=== PATIENT | male | born 1965 | race Caucasian/White ===

== ENCOUNTER 2018-05-18 05:27 | Day surgery (SDC) | payer OTHER ==
[~2018-05-18] VITALS: Ht 180.3 cm; Wt 114.8 kg
--- NOTE | ~2018-05-18 | OP ---
PATIENT NAME: IRMA HANKS MEDICAL RECORD: [id number] :61 LOCATION:[facility] ADMISSION DATE: SURGEON: YARED SMART MD DATE OF OPERATION: 05/18/2018 PREOPERATIVE DIAGNOSES: 1. Hematochezia. 2. Intractable symptomatic external hemorrhoids. 3. Third-degree anal prolapse. POSTOPERATIVE DIAGNOSES: 1. Hematochezia. 2. Intractable symptomatic external hemorrhoids. 3. Third-degree anal prolapse. PROCEDURE: Procedure for prolapse and hemorrhoids. SURGEON: Yraed Smart MD CUSHION GUM APPLICATOR: None. BLOOD LOSS: Minimal. ANESTHESIA: General. COMPLICATIONS: None. The patient has intractably symptomatic hemorrhoids. I saw the patient in the holding area. We discussed the risks, possible complications, and alternatives to the procedure. He elects to proceed. The discussion specifically included, but was not limited to, bleeding requiring emergency reoperation, infection, probability that he will have bleeding with each bowel movement for the next 3 weeks. The possibility of sphincteric incompetence or anal stenosis. He elects to proceed. OPERATIVE COURSE: The patient was conveyed to the operating room electively on 05/18/2018. General anesthesia was induced by the anesthesia staff. The patient was placed in the lithotomy position. The buttocks were taped laterally. The anus and perianal areas were sterilely prepped and draped. The anus was dilated laterally to 3 fingers. A PPH retractor was placed. The retractor was sutured to the surrounding anoderm with 2-0 silk sutures. A 2-0 Prolene mucosal pursestring suture was applied 1 cm cephalad to the clear retractor. The PPH stapling device was advanced with the anvil cephalad to the pursestring suture, which was then tightened and tied. The stapling device was engaged. It was held in place for 2 minutes. It was then fired. It was removed under direct vision. There was an entire donut of hemorrhoidal and lower rectal mucosal tissue within the stapling device. Bleeding along the anastomotic staple line was controlled with [id number] 3-0 Vicryls. A combination of Marcaine and a steroid preparation was used to infiltrate the perianal tissues. Gelfoam was applied within anus and lower rectum. A topical anesthetic cream was applied to the external hemorrhoids. The patient was then extubated and conveyed to postanesthesia care unit. There is no need for the patient to see me unless he develops a complication OPERATIVE REPORT [id number] HANKSIRMA Annette related to this operative procedure. He is going to be [facility] to the [facility] with Colace as well as Valium, which is a good anal muscle relaxant and helps prevent anal spasms as well as a narcotic analgesic. TRANSINT:[id number] Voice Confirmation ID: [id number] DOCUMENT ID: [id number] YARED SMART MD at 1717 CC: CHRISTINE RAINES MD, TREY PICKETT MD, AGUILA OLMOS and [id number] DICTATION DATE: 05/18/18 0957 VERIFYING MACHINE OPERATOR: 05/18/18 1147 [facility] 05/18/18 [facility] [address] [place] [address]
[2018-05-18] MEDS ORDERED: ZYLOPRIM100 MG (06:32)
[2018-05-18] MEDS ORDERED: ARTIFICIAL TEAR15 ML (06:33)
[2018-05-18] MEDS ORDERED: NORVASC10 MG (06:33)
[2018-05-18] MEDS ORDERED: CALCI-CHEW1 TAB.CHEW (06:34)
[2018-05-18] MEDS ORDERED: ZYRTEC10 MG (06:34)
[2018-05-18] MEDS ORDERED: XALATAN 0.0052.5 ML (06:35)
[2018-05-18] MEDS ORDERED: ZESTRIL40 MG (06:35)
[2018-05-18] MEDS ORDERED: CHLORTHALIDONE25 MG (06:35)
[2018-05-18] MEDS ORDERED: FLOMAX0.4 MG (06:36)
[2018-05-18] MEDS ORDERED: PAMELOR10 MG (06:36)
[2018-05-18] MEDS ORDERED: OMEPRAZOLE40 MG (06:36)
[2018-05-18] MEDS ORDERED: IMODIUM2 MG (06:36)
[2018-05-18 06:57] VITALS: BP 148/94; Ht 180.3 cm; Wt 114.8 kg
[2018-05-18 07:22] LABS: HEMOGLOBIN 12.6 g/dL (13.5-17.5); MCH 32.6 pg (26.0-34.0); MEAN PLATELET VOLUME 10.6 fL (7.4-10.4); RBC 3.87 10x6/uL (4.20-6.10); RDW 12.9 % (11.5-14.5); WBC 6.1 10x3/uL (4.8-10.8)
== END 2018-05-18 14:30 | disposition home or self-care (01) ==
LOC: D.OPS 05:27
PROVIDERS: Anesthesiology
DX: K64.2 Third degree hemorrhoids (principal); K64.4 Residual hemorrhoidal skin tags; Z01.812 Encounter for preprocedural laboratory examination

== ENCOUNTER 2018-07-16 05:01 | Day surgery (SDC) | payer OTHER ==
[~2018-07-16] VITALS: Ht 180.3 cm; Wt 110.5 kg
--- NOTE | ~2018-07-16 | OP ---
PATIENT NAME: IRMA HANKS MEDICAL RECORD: [id number] :61 LOCATION:D[facility] ADMISSION DATE: SURGEON: YARED SMART MD DATE OF OPERATION: 07/16/2018 PREOPERATIVE DIAGNOSIS: Thrombosed external hemorrhoid. POSTOPERATIVE DIAGNOSES: Thrombosed external hemorrhoid with enlargement of some internal hemorrhoidal bundles. PROCEDURE: External hemorrhoidectomy. SURGEON: Yared Smart MD OCCUPATIONAL THERAPIST HOME BASED: None. BLOOD LOSS: Minimal. ANESTHESIA: General. COMPLICATIONS: None. The risks, possible complications, and alternatives to the procedure were explained to the patient. He elects to proceed. OPERATIVE COURSE: The patient was conveyed to the operating room electively on 07/16/2018. General anesthesia was induced by the anesthesia staff. The patient was placed in the lithotomy position. The buttocks were taped laterally. The anus and perianal areas were sterilely prepped and draped. U-shaped anal retractors were placed. I noted no evidence of an anal fissure. No anal fistula. The external hemorrhoid that was thrombosed was easily identified. I grasped it and I used the Harmonic scalpel to excise it. There was no damage to the underlying sphincteric mechanisms. There was some enlargement of some internal hemorrhoidal bundles and I thought the patient would likely be at risk for rectal bleeding or pooling of blood within the internal and external hemorrhoids with subsequent development of a new thrombus. For this reason, I ligated several bundles of the internal hemorrhoids with 3-0 Vicryls. Gelfoam was applied within the anus and lower rectum. A combination of sterile preparation and Marcaine were used to infiltrate the perianal tissues. A topical anesthetic ointment was applied to the anus. The patient was then extubated and conveyed to the post-anesthesia care unit where he was in stable condition. He will be dismissed back to the [facility]. I will see him on a p.r.n. basis. If there is a complication related to this operative procedure, I can see him in my office or when I am on rounds out at [facility]. TRANSINT:[id number] Voice Confirmation ID: [id number] DOCUMENT ID: [id number] OPERATIVE REPORT [id number] IRMA HANKS YARED SMART MD at 1321 CC: TREY PICKETT MD, CHRISTINE RAINES MD and THOM TORRES [id number] DICTATION DATE: 07/22/18 1119 ELECTRONICS SPECIALIST: 07/22/18 1128 [facility] 07/16/18 [place] [id number] [place] [address]
[~2018-07-16 05:01] MED LIST: ARTIFICIAL TEAR15 ML; CALCI-CHEW1 TAB.CHEW; CHLORTHALIDONE25 MG; FLOMAX0.4 MG; IMODIUM2 MG; NORVASC10 MG; OMEPRAZOLE40 MG; PAMELOR10 MG; XALATAN 0.0052.5 ML; ZESTRIL40 MG; ZYLOPRIM100 MG; ZYRTEC10 MG
[2018-07-16 06:21] VITALS: BP 128/88; Ht 180.3 cm; Wt 110.5 kg
[2018-07-16 07:11] LABS: HEMATOCRIT 33.3 % (42.0-54.0); HEMOGLOBIN 11.7 g/dL (13.5-17.5); MCH 32.5 pg (26.0-34.0); MCHC 35.1 g/dL (31.0-37.0); MCV 92.5 fL (80.0-100.0); MEAN PLATELET VOLUME 10.1 fL (7.4-10.4); PLATELET COUNT 142 10x3/uL (130-400); RDW 13.4 % (11.5-14.5); WBC 5.4 10x3/uL (4.8-10.8)
[2018-07-16 07:24] LABS: CALCIUM 7.8 mg/dL (8.5-10.1); CARBON DIOXIDE 26.8 mmol/L (21.0-32.0); CREATININE - SERUM 1.2 mg/dL (0.6-1.3); POTASSIUM - SERUM 3.8 mmol/L (3.5-5.1)
[2018-07-16 07:37] LABS: APTT 28.9 SECONDS (22.8-39.4); INR 1.1 (0.85-1.17); PROTIME 13.8 SECONDS (11.6-15.0)
[2018-07-16 07:58] LABS: EOSINOPHILS 4 % (0-7); LYMPHOCYTES 36 % (15-50); MONOCYTES 5 % (2-11); NEUTROPHILS 55 % (40-80)
[2018-07-16 07:59] LABS: PLATELET ESTIMATE NORMAL; SMUDGE CELLS 1+
== END 2018-07-16 11:15 | disposition home or self-care (01) ==
LOC: D.OPS 05:01
PROVIDERS: Anesthesiology
DX: K64.8 Other hemorrhoids (principal); Z01.812 Encounter for preprocedural laboratory examination

== ENCOUNTER 2018-11-12 05:02 | Day surgery (SDC) | payer OTHER ==
[~2018-11-12] VITALS: Ht 180.3 cm; Wt 110.7 kg
[2018-11-12 05:41] LABS: BASOPHILS 0.2 % (0-2); EOSINOPHILS 3.8 % (0-7); HEMOGLOBIN 13.6 g/dL (13.5-17.5); IMMATURE GRANULOCYTES 0.5 % (0-5); MCH 32.8 pg (26.0-34.0); MCHC 35.8 g/dL (31.0-37.0); MCV 91.6 fL (80.0-100.0); MEAN PLATELET VOLUME 10.8 fL (7.4-10.4); MONOCYTES 8.1 % (2-11); NEUTROPHILS 52.4 % (40-80); RBC 4.15 10x6/uL (4.20-6.10); RDW 12.7 % (11.5-14.5); WBC 8.4 10x3/uL (4.8-10.8)
[2018-11-12 05:42] LABS: PLATELET COUNT 214 10x3/uL (130-400)
[2018-11-12 05:54] LABS: ANION GAP 14.1 mmol/L (8-16); CALCIUM 8.1 mg/dL (8.5-10.1); CARBON DIOXIDE 24.9 mmol/L (21.0-32.0); CREATININE - SERUM 1.5 mg/dL (0.6-1.3)
[2018-11-12 06:02] LABS: APTT 30.1 SECONDS (22.8-39.4); INR 1.14 (0.85-1.17); PROTIME 14.1 SECONDS (11.6-15.0)
[2018-11-12] MEDS ORDERED: FUROSEMIDE10 MG/M1 IV (06:30)
[2018-11-12 06:31] VITALS: BP 104/56; Ht 180.3 cm; Wt 110.7 kg
[2018-11-12] MEDS ORDERED: POTASSIUM20 MEQ/11 PO (06:31)
--- NOTE | 2018-11-12 14:18 | NUR ---
1300 PATIENT STILL HAS NOT URINATED AND IS WAITING FOR RADIOLOGY TO TAKE TO DO BARIUM ENEMA.
--- NOTE | 2018-11-12 15:05 | NUR ---
RECEIVED FROM XRAY POST BARIUM ENEMA. [facility] OFFICERS AT BEDSIDE. AMBULATED TO BATHROOM AND VOIDED. SERGIO SALES SERVED TO PT.
--- NOTE | 2018-11-12 15:40 | NUR ---
PT C/O NAUSEA AND IS ASKING FOR SOMETHING HOWEVER THEN ASK IF HE CAN HAVE ANOTHER SODA. ZOFRAN 4MG IV ADMINISTERED PER ORDERS. IV DC'D WITH CATHETER INTACT.
--- NOTE | 2018-11-12 16:05 | NUR ---
WRITTEN AND VERBAL DC INST. GIVEN TO [facility] OFFICER. X RAY DISC FOR BARIUM ENEMA SENT TO FACILITY WITH OFFICERS. POST OP NOTE AND H & P WILL BE FAXED BY DOT TO FACILITY AFTER DOCTOR HAS DICTATED. RX SENT WITH [facility] OFFICERS. DC'D TO CORRECTIONAL FACILITY WITH [facility] OFFICERS VIA FACILITY VEHICLE. TAKEN TO VEHICLE VIA WC. STABLE AT TIME OF DC.
--- NOTE | 2018-11-15 14:42 | OP ---
PATIENT NAME: IRMA HANKS MEDICAL RECORD: [id number] :61 LOCATION:D.[facility] ADMISSION DATE: SURGEON: YARED SMART MD DATE OF OPERATION: 11/12/2018 PREOPERATIVE DIAGNOSES: 1. Symptomatic gallstones. 2. History of an inadequate colonoscopy prep. 3. Hepatitis C. 4. Fecal occult blood positivity. POSTOPERATIVE DIAGNOSES: 1. Symptomatic gallstones. 2. History of an inadequate colonoscopy prep. 3. Hepatitis C. 4. Advanced cirrhosis noted laparoscopically. 5. Repeat inadequate prep; however, no obstructing colonic masses. 6. Left-sided colonic diverticulosis. 7. Fecal occult blood positivity. PROCEDURES: 1. Laparoscopic cholecystectomy. 2. Intraoperative cholangiography without immediate surgeon interpretation. 3. A 14-gauge core needle liver biopsies. 4. Total colonoscopy to cecum. SURGEON: Yared Smart MD INSTRUMENT PERSON: Sandy Mohan APN BLOOD LOSS: Minimal. COMPLICATIONS: None. The risks, possible complications and alternatives to the procedure were explained to the patient. He elects to proceed. The discussion specifically included, but was not limited to, bleeding requiring emergency reoperation, infection, intestinal injury, bile duct injury, and endoscopic perforation. The patient has had several colonoscopies with inadequate preps. This time, he underwent a 2-day prep. As the patient was to undergo a laparoscopic cholecystectomy, we felt that it would be of his benefit to undergo a colonoscopy at the same time, so that he would only have to have 1 trip to a health care facility, during which both of these procedures could be performed. Also, both procedures could be performed under 1 anesthetic. The indication for the liver biopsy was right upper quadrant pain as well as hepatitis C. The patient has been having nausea as well as right upper quadrant pain, which radiates around to the right back indicative of the symptomatic gallstones, which have been demonstrated radiographically. OPERATIVE COURSE: The patient was conveyed to the operating room electively on 11/12/2018. General anesthesia was induced by the anesthesia staff. The abdomen was sterilely prepped and draped. An incision was accomplished within the umbilicus. The patient had an umbilical hernia located here and I felt that OPERATIVE REPORT [id number] IRMA HANKS this was good entry point for my large trocar. I dissected down to some preperitoneal fat, which was excised with the electrocautery. I then sharply cleaned connective tissue from around the hernia defect. Through the hernia defect, I advanced a 12-mm trocar. CO2 insufflation was begun. An abdominal survey was undertaken. A 5-mm trocar was inserted in the left upper quadrant. Another 5-mm trocar was inserted in the epigastrium. Another 5-mm trocar was inserted in the right upper quadrant. During insertion of the trocars, there was no apparent injury to the bowels, any intraperitoneal or retroperitoneal structures. Under laparoscopic guidance, I advanced a 14-gauge core needle biopsy device. Cores were obtained over the convexity of the liver. The biopsy sites were made hemostatic with the electrocautery. I then advanced a cholangiogram trocar. I punctured the fundus of the gallbladder. I aspirated bile. I then injected dye. Static cholangiographic images were obtained. These were sent to the radiologist for interpretation. I then aspirated bile and removed the cholangiogram trocar. I then grasped the gallbladder and retracted it cephalad. Blunt dissection was begun in the triangle of Calot. One cystic artery and one cystic duct were identified. These were clipped multiply and divided between clips. The gallbladder was then excised from its bed in the liver. It was placed within a bag retrieval device and was withdrawn through the umbilical fascia defect. The 12-mm trocar was replaced and the abdomen reinsufflated. There was no bleeding even at low pressure of 8. All the trocars were removed and the abdomen desufflated. The umbilical fascial defect at the hernia was closed with a horizontal mattress 0 Vicryl suture. The umbilical skin was closed with sutures as were the other trocars and then this is dictated in Mrs. Mohan's operative note. Mrs. Mohan was present for the laparoscopic cholecystectomy, intraoperative cholangiography and the liver biopsy. However, she was not present for the colonoscopy. The patient was placed in the Raymundo position. A digital rectal examination was performed. A colonoscope was inserted through the anus. It was easily advanced to the cecum. The prep was inadequate. I could only rule out obstructing colonic or rectal masses. I slowly withdrew the endoscope. The pullback was greater than an 18-minute pullback. I irrigated and aspirated extensively. A retroflexed view was obtained in the rectum. I then unretroflexed the scope and removed it under direct vision. As the patient has now had, to my recollection, 3 recolonoscopy with inadequate preps, I am going to proceed with an air contrast barium enema today. If this is negative, then I would recommend an EGD to try to identify the etiology for the patient's fecal occult blood positivity. There is no need for the patient to follow up with me in the office. If the patient has a complication related to this operative procedure, I will see him in the office or when I made rounds out at the [facility]. TRANSINT:[id number] Voice Confirmation ID: [id number] DOCUMENT ID: [id number] OPERATIVE REPORT [id number] IRMA HANKS ROBERT MD at 1442 CC: TREY PICKETT MD, YARED ABRAHAM MD, CHRISTINE RAINES MD and [id number] L DICTATION DATE: 11/13/18921 BODY REPAIRER: 11/13/18 0959 [facility] 11/12/18 [facility] [address] [place] [address]
== END 2018-11-12 16:05 | disposition home or self-care (01) ==
LOC: D.OPS 05:02
PROVIDERS: Anesthesiology
DX: K80.20 Calculus of gallbladder without cholecystitis without obstruction (principal); B19.20 Unspecified viral hepatitis C without hepatic coma; K74.60 Unspecified cirrhosis of liver; K57.90 Diverticulosis of intestine, part unspecified, without perforation or abscess without bleeding

== ENCOUNTER 2018-11-16 13:33 | Inpatient (IN) | payer MEDICAID ==
[2018-11-16] VITALS (7 sets, daily range): BP systolic 103–132; BP diastolic 68–82; BMI 33.6
[~2018-11-16] VITALS: Ht 180.3 cm; Wt 109.3 kg
[~2018-11-16 13:33] MED LIST changes: +FUROSEMIDE10 MG/M1 IV; +POTASSIUM20 MEQ/11 PO
[2018-11-16 14:00] LABS: BASOPHILS 0.1 % (0-2); EOSINOPHILS 0.3 % (0-7); HEMATOCRIT 39.4 % (42.0-54.0); HEMOGLOBIN 14.1 g/dL (13.5-17.5); IMMATURE GRANULOCYTES 0.5 % (0-5); MCH 32.6 pg (26.0-34.0); MCHC 35.8 g/dL (31.0-37.0); MCV 91.2 fL (80.0-100.0); MEAN PLATELET VOLUME 10.4 fL (7.4-10.4); MONOCYTES 8.9 % (2-11); NEUTROPHILS 78.2 % (40-80); RBC 4.32 10x6/uL (4.20-6.10); RDW 12.6 % (11.5-14.5); WBC 17.5 10x3/uL (4.8-10.8)
--- NOTE | 2018-11-16 14:00 | NUR ---
UNABLE TO OBTAIN MEDICATION DUE TO PHARMACY BEING IN THE PYXIS. PT STABLE, CALL LIGHT WITHIN REACH, DENIES NEEDS, WILL CONTINUE TO MONITOR.
[2018-11-16 14:06] LABS: PLATELET COUNT 311 10x3/uL (130-400)
--- NOTE | 2018-11-16 14:15 | NUR ---
PT GONE TO CT AT THIS TIME, PT STABLE AT TRANSPORT.
[2018-11-16 14:16] LABS: ALBUMIN 2.8 g/dL (3.4-5.0); ALKALINE PHOSPHATASE 75 U/L (46-116); ALT (SGPT) 76 U/L (10-68); AMYLASE - SERUM 31 U/L (25-115); BILIRUBIN - TOTAL 0.57 mg/dL (0.2-1.3); CALC OSMOLALITY 280 mosm/kg (275-300); CALCIUM 8.4 mg/dL (8.5-10.1); CARBON DIOXIDE 21.9 mmol/L (21.0-32.0); CHLORIDE - SERUM 97 mmol/L (98-107); CREATININE - SERUM 1.6 mg/dL (0.6-1.3); GLUCOSE 126 mg/dL (74-106); LIPASE 191 U/L (73-393); POTASSIUM - SERUM 4.6 mmol/L (3.5-5.1); PROTEIN - SERUM 7.7 g/dL (6.4-8.2); SODIUM 132 mmol/L (136-145); UREA NITROGEN 53 mg/dL (7-18); eGFR NON AFRICAN AMERICAN 48 mL/min (90-120)
[2018-11-16 14:17] LABS: TROPONIN-I < 0.017 ng/mL (0.000-0.060)
--- NOTE | 2018-11-16 15:43 | NUR ---
PT STABLE, CALL LIGHT WITHIN REACH, DENIES NEEDS, WILL CONTINUE TO MONITOR.
--- NOTE | 2018-11-16 17:20 | NUR ---
REPORT CALLED TO NURSE SHIVANI. ROOM 2234. PT STABLE, CALL LIGHT WITHIN REACH, DENIES NEEDS, WILL CONTINUE TO MONITOR.
--- NOTE | 2018-11-16 17:56 | MORECARE ---
CASE MANAGEMENT DISCHARGE SUMMARY PATIENT: IRMA HANKS UNIT: [id number] ADM DATE: 11/16/18 AGE: 53 : 61 SEX: M ROOM/BED: D.2234 AUTHOR: SEFERINO SAUCEDO PHYSICIAN: REFERRING PHYSICIAN: YARED SMART MD DATE OF SERVICE: 11/16/18 Discharge Plan Patient Name: IRMA HANKS [facility] [facility] 1965 Planned Disposition: Anticipated Discharge Date: Discharge Date: Expected LOS: Initial Reviewer: [email or web address] Initial Review Date: 11/16/2018 Generated: 11/16/18 6:56 pm Patient Name: IRMA HANKS Page [phone] at 1756 All edits/amendments must be made on the electronic document DICTATION DATE: 11/16/181754 SUPERVISOR PAINT ROLLER COVERS: DELFINA 11/16/181754 RPT#: [id number] DC DATE: STATUS: ADM IN [facility] [address] [place] [address] END OF REPORT
--- NOTE | 2018-11-16 19:56 | NUR ---
PATIENT RESTING IN BED WITH GUARD AT BEDSIDE. GAVE PATIENT A URINAL AND EDUCATED HIM ON STRICT I&O, GAVE PATIENT AN IS AND EDUCATED HIM ON USE, AND I ALSO EXPLAINED THE NGT PLACEMENT AND PURPOSE TO THE PATIENT. PATIENT VERBALIZED UNDERSTANDING. PATIENT DENIES OTHER NEEDS THIS TIME. BED IN LOWEST POSITION AND CALL LIGHT WITHIN REACH. ENCOURAGED THE PATIENT TO CALL IF HE HAS NEEDS. WILL CONTINUE TO MONITOR.
--- NOTE | 2018-11-16 22:38 | NUR ---
PLACED 16F NGT IN THE RIGHT NARE WITH NO DIFFICULTY
[2018-11-17 01:58] VITALS: BP 118/65
--- NOTE | 2018-11-17 02:36 | NUR ---
CHECKED ON PT. A/OX4. GUARD AT BEDSIDE. PT REQUESTED SIPS OF WATER, REORIENTED PT TO NPO EXCEPT FOR ICE CHIPS FOLLOWED BY RETRIEVING ICE FOR HIM. COFFEE FOR GUARD. DENIES OTHER NEEDS. WILL CONTINUE POC.
[2018-11-17 04:12] VITALS: BP 107/71
[2018-11-17 04:55] LABS: BASOPHILS 0.2 % (0-2); EOSINOPHILS 1.3 % (0-7); HEMATOCRIT 37.9 % (42.0-54.0); HEMOGLOBIN 13.3 g/dL (13.5-17.5); IMMATURE GRANULOCYTES 0.8 % (0-5); LYMPHOCYTES 16.9 % (15-50); MCH 32.1 pg (26.0-34.0); MCHC 35.1 g/dL (31.0-37.0); MCV 91.5 fL (80.0-100.0); MEAN PLATELET VOLUME 10.4 fL (7.4-10.4); MONOCYTES 13.2 % (2-11); NEUTROPHILS 67.6 % (40-80); PLATELET COUNT 311 10x3/uL (130-400); RBC 4.14 10x6/uL (4.20-6.10); RDW 12.7 % (11.5-14.5)
[2018-11-17 05:01] LABS: WBC 11.8 10x3/uL (4.8-10.8)
[2018-11-17 05:15] LABS: ALBUMIN 2.8 g/dL (3.4-5.0); ALKALINE PHOSPHATASE 76 U/L (46-116); ALT (SGPT) 74 U/L (10-68); BILIRUBIN - TOTAL 0.73 mg/dL (0.2-1.3); CALC OSMOLALITY 286 mosm/kg (275-300); CARBON DIOXIDE 25.1 mmol/L (21.0-32.0); CHLORIDE - SERUM 100 mmol/L (98-107); CREATININE - SERUM 1.6 mg/dL (0.6-1.3); GLUCOSE 109 mg/dL (74-106); MAGNESIUM - SERUM 2.5 mg/dL (1.8-2.4); POTASSIUM - SERUM 4.9 mmol/L (3.5-5.1); PROTEIN - SERUM 6.7 g/dL (6.4-8.2); SODIUM 136 mmol/L (136-145); UREA NITROGEN 51 mg/dL (7-18); eGFR NON AFRICAN AMERICAN 48 mL/min (90-120)
[2018-11-17 05:20] LABS: TROPONIN-I < 0.017 ng/mL (0.000-0.060)
--- NOTE | 2018-11-17 07:20 | NUR ---
PT SITTING UP ON SIDE OF BED WITH NG TUBE TO RIGHT NARE AND CONNECTED TO SUCTIONING. DRAINING LIGHT BROWN DRAINAGE. IV TO LEFT AC WITH NS @ 125 ML/HR INFUSING VIA PUMP. SITE WITHOUT REDNESS OR EDEMA. REPORTS PAIN 7/10 TO ABDOMEN AREA. EDUCATED PT TO ORDERS FOR DILAUDID CARPENTER THAT WILL BE ADMINISTERED PER ORDERS. LAP SITES X 4 TO ABDOMEN C/D/I. ASSISTED PT TO BR AND BACK TO BED. REPORTS SMALL BM AT THIS TIME. DENIES FURTHER NEEDS AT THIS TIME. GUARD AT BEDSIDE WITH ONE SHACKLE TO RIGHT ANKLE. CL WITHIN REACH. ENCOURAGED TO CALL WITH NEEDS. CONTINUE POC
--- NOTE | 2018-11-17 08:00 | NUR ---
PT TAKEN VIA W/C TO RADIOLOGY. NO ACUTE DISTRESS. NG TUBE CLAMPED.
--- NOTE | 2018-11-17 08:15 | NUR ---
RECIEVED CALL FROM DR. SMART ENQUIRING ABOUT PT WELL BEING. UPDATED, NEW ORDERS NOTED
--- NOTE | 2018-11-17 08:24 | NUR ---
PT RETURNED TO ROOM VIA W/C. AMRIT WELL. RECONNECTED NG TUBE TO LOW INTERMITTENT SUCTIONING.
[2018-11-17 09:16] VITALS: BP 122/81
[2018-11-17 12:00] VITALS: BP 112/78
[2018-11-17 12:51] VITALS: Ht 180.3 cm; Wt 109.3 kg
[2018-11-17 15:32] LABS: APPEARANCE CLEAR (CLEAR); BILIRUBIN NEGATIVE (NEGATIVE); COLOR YELLOW (YELLOW); GLUCOSE NEGATIVE (NEGATIVE); KETONE NEGATIVE (NEGATIVE); NITRITE NEGATIVE (NEGATIVE); PROTEIN NEGATIVE (NEGATIVE); UROBILINOGEN NORMAL (NORMAL)
[2018-11-17 20:35] VITALS: BP 118/76
[2018-11-18 00:46] VITALS: BP 143/92
--- NOTE | 2018-11-18 01:16 | NUR ---
A/OX4. BREATHING EVEN AND UNLABORED. PT STATES HE FEELS BETTER TODAY. REQUESTS POPCICLES AND ICE CHIPS OFTEN. DENIES OTHER NEEDS AT THIS TIME. GUARD AT BEDSIDE. WILL CONTINUE POC. ALSO CHANGED CANISTER OUT 1000ML DARK GREEN FLUID.
[2018-11-18 04:57] VITALS: BP 127/78
[2018-11-18 05:21] LABS: BASOPHILS 0.2 % (0-2); EOSINOPHILS 2.6 % (0-7); HEMATOCRIT 40.6 % (42.0-54.0); HEMOGLOBIN 14.1 g/dL (13.5-17.5); IMMATURE GRANULOCYTES 1.1 % (0-5); LYMPHOCYTES 29.8 % (15-50); MCH 32.5 pg (26.0-34.0); MCHC 34.7 g/dL (31.0-37.0); MEAN PLATELET VOLUME 9.9 fL (7.4-10.4); MONOCYTES 11.8 % (2-11); NEUTROPHILS 54.5 % (40-80); PLATELET COUNT 359 10x3/uL (130-400); RBC 4.34 10x6/uL (4.20-6.10); RDW 12.8 % (11.5-14.5); WBC 12.5 10x3/uL (4.8-10.8)
[2018-11-18 05:35] LABS: MCV 93.5 fL (80.0-100.0)
[2018-11-18 05:51] LABS: ANION GAP 14.8 mmol/L (8-16); CALCIUM 8.2 mg/dL (8.5-10.1); CREATININE - SERUM 1.3 mg/dL (0.6-1.3)
[2018-11-18 05:52] LABS: POTASSIUM - SERUM 3.8 mmol/L (3.5-5.1)
--- NOTE | 2018-11-18 08:15 | NUR ---
PT RESTING IN BED, ALERT AND ORIENTED. NG TUBE IN PLACE TO RIGHT NARE TO LOW INTERMITTENT SUCTIONING WITH DARK YELLOW DRAINAGE NOTED. IV TO LEFT AC WITH NS @ 125 ML/HR INFUSING VIA PUMP. SITE WITHOUT REDNESS OR EDEMA. PROTONIX DRIP @ 10 ML/HR AND DILAUDID INJECTION MOLDING PROCESS TECHNICIAN INTACT INFUSING VIA PUMP. PT REPORTS PAIN 6/10, WITH PAIN RELIEF WITH DILAUDID INJECTION MOLDING PROCESS TECHNICIAN. LAP SITES X 4 C/D/I. ABDOMEN REMAINS SOMEWHAT DISTENDED AT THIS TIME. GUARD AT BEDSIDE WITH ANKLE SHACKLES IN PLACE. DENIES FURTHER NEEDS AT THIS TIME. CL WITHIN REACH. ENCOURAGED TO CALL WITH NEEDS. CONTINUE POC
[2018-11-18 08:57] VITALS: BP 131/87
--- NOTE | 2018-11-18 11:40 | MORECARE ---
CASE MANAGEMENT DISCHARGE SUMMARY PATIENT: IRMA HANKS UNIT: [id number] ADM DATE: 11/16/18 AGE: 53 : 61 SEX: M ROOM/BED: D.2234 AUTHOR: SEFERINO SAUCEDO PHYSICIAN: REFERRING PHYSICIAN: YARED SMART MD DATE OF SERVICE: 11/18/18 Discharge Plan Patient Name: IRMA HANKS [facility] [facility] 1965 Planned Disposition: Court\Law Enforcement Anticipated Discharge Date: 11/18/18 Discharge Date: Expected LOS: 2 Initial Reviewer: [email or web address] Initial Review Date: 11/16/2018 Generated: 11/18/18 12:40 pm Last DP export: 11/16/18 4:56 p Patient Name: IRMA HANKS Page [phone] at 1140 All edits/amendments must be made on the electronic document DICTATION DATE: 11/18/18 113 ENERGY AND CONSERVATION TECHNICIAN: DM 11/18/18 1139 RPT#: [id number] DC DATE: STATUS: ADM IN [facility] [address] [place] [address] END OF REPORT
[2018-11-18 17:26] VITALS: BP 121/90
--- NOTE | 2018-11-18 19:00 | NUR ---
THE PATIENT WAS WATCHING TELEVISION WHEN STAFF ENTERED HIS AREA. CORRECTIONAL STAFF PRESENT. THE PATIENTS BED WAS IN THE LOW POSITION WITH SIDERAILS X2 AND CALL LIGHT WITHIN REACH. PATIENT DEMONSTRATES APPROPRIATE USE OF A CALL LIGHT. THE PATIENT APPEARS COMFORTABLE WITH NO QUESTIONS OR CONCERNS AT THIS TIME. THE PATIENT IS NPO AT MIDNIGHT AND VERBALIZES UNDERSTANDING OF THIS.
[2018-11-18 20:31] VITALS: BP 124/97
[2018-11-19 00:54] VITALS: BP 153/85
--- NOTE | 2018-11-19 01:42 | NUR ---
THE PATIENT APPEARS COMFORTABLE WITH NO QUESTIONS OR CONCERNS AT THIS TIME.
[2018-11-19 05:04] VITALS: BP 153/91
[2018-11-19 05:13] LABS: BASOPHILS 0.1 % (0-2); EOSINOPHILS 2.9 % (0-7); HEMATOCRIT 37.4 % (42.0-54.0); IMMATURE GRANULOCYTES 0.8 % (0-5); LYMPHOCYTES 20.8 % (15-50); MCHC 34.8 g/dL (31.0-37.0); MCV 92.1 fL (80.0-100.0); MEAN PLATELET VOLUME 9.9 fL (7.4-10.4); NEUTROPHILS 63.4 % (40-80); RBC 4.06 10x6/uL (4.20-6.10); RDW 12.4 % (11.5-14.5); WBC 12.7 10x3/uL (4.8-10.8)
[2018-11-19 05:31] LABS: PLATELET COUNT 287 10x3/uL (130-400)
[2018-11-19 05:54] LABS: CALCIUM 7.7 mg/dL (8.5-10.1); CARBON DIOXIDE 22.3 mmol/L (21.0-32.0); CHLORIDE - SERUM 105 mmol/L (98-107); GLUCOSE 96 mg/dL (74-106); POTASSIUM - SERUM 3.8 mmol/L (3.5-5.1); SODIUM 140 mmol/L (136-145)
[2018-11-19 08:01] LABS: CALC OSMOLALITY 281 mosm/kg (275-300); CREATININE - SERUM 0.9 mg/dL (0.6-1.3); UREA NITROGEN 20 mg/dL (7-18); eGFR NON AFRICAN AMERICAN > 90 mL/min (90-120)
--- NOTE | 2018-11-19 09:45 | NUR ---
LEFT AC IV INFILTRATED; REMOVED, TIP INTACT. NEW 22G IV PLACED IN RIGHT HAND. PATIETN TOLERATED WELL. FLUIDS AND CLERICAL ASSISTANT RESTARTED.
[2018-11-19 09:46] VITALS: BP 129/89
--- NOTE | 2018-11-19 12:23 | NUR ---
NUTRITION F/U PT CONTINUES NPO STATUS. IF UNABLE TO START DIET, MAY BENEFIT FROM PROCALAMINE AND INTRALIPIDS. RD FOLLOWING
[2018-11-19 18:12] VITALS: BP 123/92
[2018-11-19 19:00] VITALS: BP 130/102
--- NOTE | 2018-11-19 19:00 | NUR ---
THE PATIENT WAS WATCHING TELEVISION WHEN STAFF ENTERED HIS ROOM. BED IN LOW POSITION WITH SIDRAILS X2 AND CALL LIGHT WITHIN REACH. PATIENT EDUCATED ON QC CHEMIST USE AND DEMONSTRATED UNDERSTANDING VIA TEACHBACK METHOD. THE PATIENT APPEARS COMFORTABLE WITH NO QUESTIONS OR CONCERNS AT THIS TIME.
[2018-11-20] VITALS: BP 128/88
--- NOTE | 2018-11-20 01:46 | NUR ---
THE PATIENT IS AWAKE AND VOICES NO QUESTIONS OR CONCERNS.
[2018-11-20 03:00] VITALS: BP 121/75
[2018-11-20 05:24] LABS: BASOPHILS 0.2 % (0-2); EOSINOPHILS 2.7 % (0-7); HEMATOCRIT 38.5 % (42.0-54.0); HEMOGLOBIN 13.7 g/dL (13.5-17.5); IMMATURE GRANULOCYTES 0.8 % (0-5); LYMPHOCYTES 19.6 % (15-50); MCH 32.4 pg (26.0-34.0); MCHC 35.6 g/dL (31.0-37.0); MONOCYTES 7.9 % (2-11); NEUTROPHILS 68.8 % (40-80); PLATELET COUNT 275 10x3/uL (130-400); RBC 4.23 10x6/uL (4.20-6.10); RDW 12.2 % (11.5-14.5); WBC 13.9 10x3/uL (4.8-10.8)
[2018-11-20 05:50] LABS: CALC OSMOLALITY 277 mosm/kg (275-300); CALCIUM 7.9 mg/dL (8.5-10.1); CARBON DIOXIDE 19.5 mmol/L (21.0-32.0); CHLORIDE - SERUM 104 mmol/L (98-107); CREATININE - SERUM 0.9 mg/dL (0.6-1.3); GLUCOSE 94 mg/dL (74-106); POTASSIUM - SERUM 3.8 mmol/L (3.5-5.1); SODIUM 138 mmol/L (136-145); UREA NITROGEN 17 mg/dL (7-18); eGFR NON AFRICAN AMERICAN > 90 mL/min (90-120)
[2018-11-20 08:00] VITALS: BP 137/92
--- NOTE | 2018-11-20 08:14 | NUR ---
AWAKE AND ALERT, EVEN UNLABORED BREATHING, NG TUBE CLAMPED, NASAL MUCOUS MOIST AND PINK, LEFT ELBOW SWOLLEN AND RED FROM INFILTRATED IV THAT HAS BEEN REMOVED, 4 LAP SITES COVERED WITH STERI-STRIPS, DENIES ANY CURRENT NEEDS OR DISCOMFORTS, BED LOWERED AND LOCKED, CALL LIGHT WITHIN REACH. CPOC
[2018-11-20 12:00] VITALS: BP 137/103
--- NOTE | 2018-11-20 13:29 | NUR ---
FULL SHOWER. SKIN CLEAN, DRY, AND INTACT OTHER THAN 4 LAP SITES, DENIES ANY OTHER NEEDS OR DISCOMFORTS, BED LOWERE AND LOCKED, CALL LIGHT WITHIN REACH. CPOC
[2018-11-20 16:00] VITALS: BP 153/94
--- NOTE | 2018-11-20 18:37 | NUR ---
NG TUBE REMOVED. TOLERATED WELL. NASAL MUCOUS MOIST, PINK, EVEN UNLABORED BREATHING, AWAKE AND ALERT, NO USE OF COATING OPERATOR PUMP DURING SHIFT, IV IN RIGHT HAND PATENT, INFUSING FLUIDS, DRESSING C/D/I, DENIES ANY OTHER NEEDS OR DISCOMFORTS, BED LOWERED AND LOCKED, CALL LIGHT WITHIN REACH. CPOC
--- NOTE | 2018-11-20 18:46 | NUR ---
.ALERT AND ORIENTED WITH N/G TUBE CLAMPED. BM 11/20/18. IVF INFUSING RT HAND AT PRESCRIBED RATE ALONG WITH FILLING CARRIER DILAUDID PRN. STERISTRIPS INTACT TO ABDOMEN. ENCOURAGED TO USE CALL LIGHT FOR ASSSITANCE
[2018-11-20 19:00] VITALS: BP 126/96
--- NOTE | 2018-11-20 19:20 | NUR ---
RECEIVED REPORT, ASSUMED CARE, DENIES NEEDS, GAURD AT BEDSIDE, CALL LIGHT IN REACH, BED LOWEST POSITION, A&O, ASSESSMENT COMPLETE, NO S/S OF DISTRESS NOTED, WILL CONTINUE POC
[2018-11-21] VITALS: BP 126/79
--- NOTE | 2018-11-21 00:11 | NUR ---
Patient in bed with no needs noted at this time. Antony in room at bedside. no s/s of distress no needs noted reprations are even and unlabored call light in reach.
[2018-11-21 03:00] VITALS: BP 133/86
[2018-11-21 06:03] LABS: BASOPHILS 0.2 % (0-2); HEMATOCRIT 36.5 % (42.0-54.0); IMMATURE GRANULOCYTES 0.9 % (0-5); LYMPHOCYTES 28.5 % (15-50); MCH 32.1 pg (26.0-34.0); MCHC 35.6 g/dL (31.0-37.0); MCV 90.1 fL (80.0-100.0); MONOCYTES 8.6 % (2-11); NEUTROPHILS 57.8 % (40-80); PLATELET COUNT 260 10x3/uL (130-400); RBC 4.05 10x6/uL (4.20-6.10); RDW 12.2 % (11.5-14.5)
[2018-11-21 06:17] LABS: CALC OSMOLALITY 273 mosm/kg (275-300); CALCIUM 7.5 mg/dL (8.5-10.1); CARBON DIOXIDE 20.6 mmol/L (21.0-32.0); CHLORIDE - SERUM 106 mmol/L (98-107); CREATININE - SERUM 0.9 mg/dL (0.6-1.3); GLUCOSE 96 mg/dL (74-106); POTASSIUM - SERUM 3.4 mmol/L (3.5-5.1); SODIUM 137 mmol/L (136-145); UREA NITROGEN 13 mg/dL (7-18); eGFR NON AFRICAN AMERICAN > 90 mL/min (90-120)
--- NOTE | 2018-11-21 08:38 | NUR ---
PT RESTING IN BED. GUARD AT BEDSIDE. DENIES PAIN, N/V. BROUGHT PT COFFEE. NO S/S OF ACUTE DISTRESS. CL IN PLACE.
[2018-11-21 08:48] VITALS: BP 142/98
[2018-11-21 12:00] VITALS: BP 121/83
--- NOTE | 2018-11-21 13:27 | NUR ---
SPOKE WITH DR SMART ABOUT RESTARTED HOME MEDS. ORDER GIVEN TO RESTART. REVIEWED MEDS WITH PT. PT DID" NOT WANT TO TAKE ALLOPURINOL OR FLOMAX". NO S/S OF ACUTE DISTRESS. CL IN PLACE.
[2018-11-21 16:00] VITALS: BP 128/90
[2018-11-21 19:00] VITALS: BP 123/84
--- NOTE | 2018-11-21 19:02 | NUR ---
PT RESTING IN BED. NO S.S OF ACUTE DISTRESS. GUARD AT BEDSIDE. CL IN PLACE.
--- NOTE | 2018-11-21 19:30 | NUR ---
RECEIVED REOPORT, ASSUMED CARE, A&O, DENIES NEEDS, NO S/S OF DISTRESS NOTED, GETTING READY TO GO FOR A WALK AROUND NURSES STATION, BED LOWEST POSITION, CALL LIGHT IN REACH, WILL CONTINUE TO MONITOR
--- NOTE | 2018-11-21 22:43 | NUR ---
PATIEN AWAKE IN BED WITH TV ON STATED NO NEEDS AT THIS TIME. CALL LIGHT IN REACH NO S/S OF DISTRESS RAMÍREZ AT BEDSIDE.
[2018-11-22] VITALS: BP 117/79
[2018-11-22 03:00] VITALS: BP 133/54
[2018-11-22 09:00] VITALS: BP 118/90
--- NOTE | 2018-11-22 12:03 | MORECARE ---
CASE MANAGEMENT DISCHARGE SUMMARY PATIENT: IRMA HANKS UNIT: [id number] ADM DATE: 11/16/18 AGE: 53 : 61 SEX: M ROOM/BED: D.2234 AUTHOR: SEFERINO SAUCEDO PHYSICIAN: REFERRING PHYSICIAN: YARED SMART MD DATE OF SERVICE: 11/22/18 Discharge Plan Patient Name: IRMA HANKS [facility] [facility] 1965 Planned Disposition: Court\Law Enforcement Anticipated Discharge Date: 11/18/18 Discharge Date: Expected LOS: 2 Initial Reviewer: [email or web address] Initial Review Date: 11/16/2018 Generated: 11/22/18 1:03 pm Comments DCP- Discharge Planning Updated by [email or web address]: Isidra Mishra on 11/22/18 11:[address] Discharging back to the shelter today, guards to make arrangements. I called Oli and notified her and faxed DC summary/orders. DCP- Discharge Planning Updated by [email or web address]: Isidra Mishra on 11/18/18 10:[address] Patient Name: IRMA HANKS Admission Status: ER Accout number: [id number] Admission Date: 11-16-2018 : 1965 Admission Diagnosis: Attending: YARED SMART Current LOS: 2 Anticipated DC Date: 11-18-2018 Planned Disposition: Court\Law Enforcement Primary Insurance: MEDICAID RETIREMENT Discharge Planning Comments: Resident of [facility], to return when discharged from facility. CM will continue to follow and assist with discharge planning/needs. Windows Mobile Developer: Isidra Mishra Last DP export: 11/18/18 10:40 a Patient Name: IRMA HANKS Page [phone] at 1203 All edits/amendments must be made on the electronic document DICTATION DATE: 11/22/18 120 GLOBAL PRODUCT MANAGER: DELFINA 11/22/18 120 RPT#: [id number] DC DATE: STATUS: ADM IN [facility] [address] [place] [address] END OF REPORT
--- NOTE | 2018-11-30 07:03 | MORECARE ---
CASE MANAGEMENT DISCHARGE SUMMARY PATIENT: IRMA HANKS UNIT: [id number] ADM DATE: 11/16/18 AGE: 53 : 61 SEX: M ROOM/BED: D.2234 AUTHOR: SEFERINO SAUCEDO PHYSICIAN: REFERRING PHYSICIAN: YARED SMART MD DATE OF SERVICE: 11/30/18 Discharge Plan Patient Name: IRMA HANKS Facility: [facility]:[place] : 1965 Planned Disposition: Court\Law Enforcement Anticipated Discharge Date: 11/18/18 Discharge Date: 11/22/2018 Expected LOS: 2 Initial Reviewer: [email or web address] Initial Review Date: 11/16/2018 Generated: 11/30/18 8:02 am Comments DCP- Discharge Planning Updated by [email or web address]: Isidra Mishra on 11/22/18 11:[address] Discharging back to the alf today, guards to make arrangements. I called Oli and notified her and faxed DC summary/orders. DCP- Discharge Planning Updated by [email or web address]: Isidra Mishra on 11/18/18 10:[address] Patient Name: IRMA HANKS Admission Status: ER Accout number: [id number] Admission Date: 11-16-2018 : 1965 Admission Diagnosis: Attending: YARED SMART Current LOS: 2 Anticipated DC Date: 11-18-2018 Planned Disposition: Court\Law Enforcement Primary Insurance: MEDICAID [employer] Discharge Planning Comments: Resident of [facility], to return when discharged from facility. CM will continue to follow and assist with discharge planning/needs. Credit Negotiator: Isidra Mishra Last DP export: 11/22/18 11:03 a Patient Name: IRMA HANKS Page [id number] at 0703 All edits/amendments must be made on the electronic document DICTATION DATE: 11/30/18701 MANAGER INTERN: DELFINA 11/30/18701 RPT#: [id number] DC DATE:11/22/18 STATUS: DIS IN [facility] [address] [place] [address] END OF REPORT
== END 2018-11-22 13:01 | DRG 389 ==
LOC: D.ER 13:33 → D.EDHOLD 16:08 → D.MS 16:08
PROVIDERS: Family Medicine; ADMIT Surgery
PROC: 0D9670Z Drainage of Stomach with Drainage Device, Via Natural or Artificial Opening (ICD-10-PCS; principal; 2018-11-16)
DX: K56.609 Unspecified intestinal obstruction, unspecified as to partial versus complete obstruction (principal); N17.9 Acute kidney failure, unspecified; I12.9 Hypertensive chronic kidney disease with stage 1 through stage 4 chronic kidney disease, or unspecified chronic kidney disease; N18.9 Chronic kidney disease, unspecified; N40.0 Benign prostatic hyperplasia without lower urinary tract symptoms; B19.20 Unspecified viral hepatitis C without hepatic coma